=== PATIENT | female | born 1955 ===

== ENCOUNTER 2017-12-02 11:12 | Day surgery (SDC) | payer OTHER ==
[2017-12-02 11:50] VITALS: BMI 23.3
[2017-12-02] MEDS ORDERED: Lactated Ringer's 500 ML IV ONE (11:54)
[2017-12-02] MEDS ORDERED: Propofol 10 mg/ml Inj (20 ML) ONE (12:57)
[2017-12-02 13:21] VITALS: PULSE 59
[2017-12-02 13:34] VITALS: BP 107/67; RESP 16; TEMP 97; O2SAT 100
== END 2017-12-02 13:38 | disposition home or self-care (01) ==
LOC: H.ENDO 11:12
PROVIDERS: ATTEND Internal Medicine Gastroenterology
DX: R10.13 Epigastric pain (principal); K22.8 Other specified diseases of esophagus; K31.89 Other diseases of stomach and duodenum
CPT/HCPCS: 43239; 88305; J2001; J2704; J7120

== ENCOUNTER 2017-12-16 10:52 | Day surgery (SDC) | payer OTHER ==
[2017-12-16] MEDS ORDERED: Lactated Ringer's 500 ML IV ONE (11:18)
[2017-12-16] MEDS ORDERED: Propofol 10 mg/ml Inj (20 ML) ONE (14:26)
[2017-12-16 15:09] VITALS: PULSE 72; RESP 14; TEMP 97.4; O2SAT 100
[2017-12-16 15:14] VITALS: BP 107/70
== END 2017-12-16 15:15 | disposition home or self-care (01) ==
LOC: H.ENDO 10:52
PROVIDERS: ATTEND Internal Medicine Gastroenterology
DX: Z12.11 Encounter for screening for malignant neoplasm of colon (principal); E78.5 Hyperlipidemia, unspecified; K62.4 Stenosis of anus and rectum; K64.8 Other hemorrhoids; D12.0 Benign neoplasm of cecum; K57.30 Diverticulosis of large intestine without perforation or abscess without bleeding
CPT/HCPCS: 45380; 88305; J2001; J2704; J7120